=== PATIENT | female | born 1990 | race Caucasian/White ===

== ENCOUNTER 2019-01-19 21:47 | Inpatient (IN) | payer OTHER ==
[~2019-01-19] VITALS: Ht 154.9 cm; Wt 75.0 kg
[2019-01-21] MEDS ORDERED: METOCLOPRAMIDE 5 MG/ML, 2ML IV ONE (10:30)
[2019-01-21] MEDS ORDERED: LACTATED RINGERS 1,000 ML IVBOLUS ONE (10:30)
[2019-01-21] MEDS ORDERED: SODIUM CITRATE/CITRIC ACID 30 ML UDC PO ONE (10:30)
[2019-01-21] MEDS ORDERED: NEWBORN KIT ONE (10:34)
[2019-01-21] MEDS ORDERED: SODIUM CITRATE/CITRIC ACID 30 ML UDC ONE (10:35)
[2019-01-21] MEDS ORDERED: METOCLOPRAMIDE 5 MG/ML, 2ML ONE (10:35)
[2019-01-21] MEDS ORDERED: OXYTOCIN 30U/ 0.9% NaCL 500ML 500 ML ONE (10:35)
[2019-01-21 10:38] VITALS: BP 128/91
[2019-01-21 10:48] LABS: BASOPHILS # (AUTO) 0.02 x10^3/uL (0-0.1); BASOPHILS % (AUTO) 0 % (0-1); EOSINOPHILS # (AUTO) 0.01 x10^3/uL (0-0.4); EOSINOPHILS % (AUTO) 0 % (1-7); LYMPHOCYTES # (AUTO) 2.45 x10^3/uL (1-3.4); LYMPHOCYTES % (AUTO) 23 % (22-44); MD NO; MEAN CORPUSCULAR HEMOGLOBIN 28.5 pg (27.0-34.8); MEAN CORPUSCULAR HGB CONC 32.6 g/dL (32.4-35.8); MEAN CORPUSCULAR VOLUME 87.3 fL (80-100); MEAN PLATELET VOLUME 7.7 fL (7.4-10.4); MONOCYTES # (AUTO) 0.52 x10^3/uL (0.2-0.8); MONOCYTES % (AUTO) 5 % (2-9); NEUTROPHILS % (AUTO) 73 % (42-75); PLATELET COUNT 200 x10^3/uL (130-400); RED BLOOD COUNT 3.59 x10^6/uL (3.82-5.3); RED CELL DISTRIBUTION WIDTH 13.9 % (9.6-15.2)
[2019-01-21] MEDS: LACTATED RINGERS 1,000 ML IV SCH ×2 (11:00→14:09)
[2019-01-21 11:01] LABS: ALANINE AMINOTRANSFERASE 11 U/L (12-78); ALBUMIN 2.3 g/dL (3.4-5.0); ANION GAP 9 mmol/L (5-15); CALCIUM 8.5 mg/dL (8.5-10.1); CHLORIDE 112 mmol/L (98-107); CREATININE 0.76 mg/dL (0.55-1.02)
[2019-01-21 11:03] LABS: ALKALINE PHOSPHATASE 199 U/L (45-117); BILIRUBIN,TOTAL 0.2 mg/dL (0.2-1.0); TOTAL PROTEIN 6.6 g/dL (6.4-8.2)
[2019-01-21] MEDS ORDERED: morphine SULFATE/PF 0.5 MG/ML, 10ML ONE (11:22)
[2019-01-21] MEDS ORDERED: OXYTOCIN 10 UNITS/ML, 1ML ONE (11:23)
[2019-01-21] MEDS ORDERED: WATER-INJECTION,STERILE 10 ML IV ONE (11:23)
[2019-01-21] MEDS ORDERED: ONDANSETRON 2MG/ML, 2ML ONE (11:23)
[2019-01-21] MEDS ORDERED: EPHEDRINE 50 MG/ML, 1ML ONE (11:23)
[2019-01-21] MEDS ORDERED: PHENYLEPHRINE 10 MG/ML ONE (11:23)
[2019-01-21] MEDS ORDERED: CEFAZOLIN 1,000 MG ONE (11:23)
[2019-01-21] MEDS ORDERED: MISOPROSTOL 200 MCG TABLET PR PRN (13:30)
[2019-01-21] MEDS ORDERED: OXYcodone IR 5MG TABLET PO PRN (13:30)
[2019-01-21] MEDS ORDERED: ONDANSETRON 2MG/ML, 2ML IV PRN (13:30)
[2019-01-21] MEDS ORDERED: OXYcodone/APAP 5/325MG TABLET PO PRN (13:30)
[2019-01-21] MEDS ORDERED: ACETAMINOPHEN 325 MG TABLET PO PRN (13:30)
[2019-01-21] MEDS ORDERED: PREN1TAB60 PO (13:47)
[2019-01-21] MEDS ORDERED: METF10007 PO (13:49)
[2019-01-21] MEDS ORDERED: INSU100I40 SC (13:51)
[2019-01-21] MEDS: AMOXICILLIN/CLAV 875-125MG TABLET PO SCH ×2 (14:07→21:23)
[2019-01-21] MEDS: OXYTOCIN 30U/ 0.9% NaCL 500ML 500 ML IV SCH ×2 (14:10→23:03)
[2019-01-21] MEDS ORDERED: KETOROLAC 30 MG/1 ML ONE (15:04)
[2019-01-21] MEDS: KETOROLAC 30 MG/1 ML IV PRN ×2 (15:05→20:57)
[2019-01-21 15:28] VITALS: BP 122/78
[2019-01-21] MEDS: INSULIN REGULAR 100 UNITS/ML, 3ML VIAL SQ-INSULIN SCH (18:00)
[2019-01-21 20:00] VITALS: BP 127/87
[2019-01-21 20:27] LABS: BASOPHILS # (AUTO) 0.06 x10^3/uL (0-0.1); BASOPHILS % (AUTO) 0 % (0-1); EOSINOPHILS # (AUTO) 0.01 x10^3/uL (0-0.4); EOSINOPHILS % (AUTO) 0 % (1-7); LYMPHOCYTES # (AUTO) 2.28 x10^3/uL (1-3.4); LYMPHOCYTES % (AUTO) 17 % (22-44); MD NO; MEAN CORPUSCULAR HEMOGLOBIN 29.5 pg (27.0-34.8); MEAN CORPUSCULAR HGB CONC 33.9 g/dL (32.4-35.8); MEAN PLATELET VOLUME 7.7 fL (7.4-10.4); MONOCYTES # (AUTO) 0.61 x10^3/uL (0.2-0.8); MONOCYTES % (AUTO) 5 % (2-9); NEUTROPHILS # (AUTO) 10.65 x10^3/uL (1.8-6.8); NEUTROPHILS % (AUTO) 78 % (42-75); PLATELET COUNT 199 x10^3/uL (130-400); RED BLOOD COUNT 3.48 x10^6/uL (3.82-5.3); RED CELL DISTRIBUTION WIDTH 13.9 % (9.6-15.2)
[2019-01-22] VITALS: BP 118/77
[2019-01-22] MEDS: GUAIFENESIN/DM 200-20MG, 10ML UDC PO PRN ×3 (00:34→14:17)
[2019-01-22] MEDS: KETOROLAC 30 MG/1 ML IV PRN ×4 (02:57→20:53)
[2019-01-22 04:00] VITALS: BP 125/81
[2019-01-22] MEDS: INSULIN REGULAR 100 UNITS/ML, 3ML VIAL SQ-INSULIN SCH ×4 (06:00→18:00)
[2019-01-22 07:30] VITALS: BP 112/73
[2019-01-22] MEDS: OXYTOCIN 30U/ 0.9% NaCL 500ML 500 ML IV SCH ×2 (09:03→19:03)
[2019-01-22] MEDS: PRENATAL VIT/IRON/FA 1 EACH TABLET PO SCH (09:06)
[2019-01-22] MEDS: DOCUSATE 100 MG CAPSULE PO PRN ×2 (09:06→20:53)
[2019-01-22] MEDS: AMOXICILLIN/CLAV 875-125MG TABLET PO SCH ×2 (09:06→20:53)
[2019-01-22] MEDS ORDERED: LIDOCAINE-MPF 1%, 2ML INFIL ONE (12:00)
[2019-01-22] MEDS ORDERED: LIDOCAINE/PRILOCAINE CRM W/TEG 5GM TP ONE (12:00)
[2019-01-22 13:00] VITALS: BP 118/80
[2019-01-22] MEDS ORDERED: DIPH,PERTUSS(ACELL),TET VAC/PF NC IM-VACC ONE (18:30)
[2019-01-22 20:00] VITALS: BP 122/91
[2019-01-22] MEDS ORDERED: SIMETHICONE 80 MG CHEW TAB ONE (20:50)
[2019-01-23 02:30] VITALS: BP 123/86
[2019-01-23] MEDS: IBUPROFEN 600 MG TABLET PO PRN ×4 (03:02→20:49)
[2019-01-23] MEDS ORDERED: SIMETHICONE 80 MG CHEW TAB ONE (03:04)
[2019-01-23] MEDS: INSULIN REGULAR 100 UNITS/ML, 3ML VIAL SQ-INSULIN SCH ×4 (06:00→18:00)
[2019-01-23 08:00] VITALS: BP 144/90
[2019-01-23] MEDS ORDERED: ONDANSETRON ODT 4 MG ONE (08:25)
[2019-01-23] MEDS: AMOXICILLIN/CLAV 875-125MG TABLET PO SCH ×2 (08:26→20:49)
[2019-01-23] MEDS: DOCUSATE 100 MG CAPSULE PO PRN ×2 (08:27→20:49)
[2019-01-23] MEDS: GUAIFENESIN/DM 200-20MG, 10ML UDC PO PRN ×2 (08:27)
[2019-01-23] MEDS: SIMETHICONE 80 MG CHEW TAB PO PRN ×2 (08:27→20:49)
[2019-01-23] MEDS: PRENATAL VIT/IRON/FA 1 EACH TABLET PO SCH (08:30)
[2019-01-23] MEDS ORDERED: ONDANSETRON ODT 4 MG PO PRN (08:30)
[2019-01-23 19:52] VITALS: BP 125/83
[2019-01-24] MEDS: SIMETHICONE 80 MG CHEW TAB PO PRN (04:17)
[2019-01-24] MEDS: IBUPROFEN 600 MG TABLET PO PRN ×2 (04:17→10:37)
[2019-01-24] MEDS: GUAIFENESIN/DM 200-20MG, 10ML UDC PO PRN (05:18)
[2019-01-24] MEDS: INSULIN REGULAR 100 UNITS/ML, 3ML VIAL SQ-INSULIN SCH (06:00)
[2019-01-24] MEDS ORDERED: OXYC-302 PO (07:43)
[2019-01-24] MEDS ORDERED: IBUP200T49 PO (07:44)
[2019-01-24] MEDS ORDERED: IBUP-1222 PO (07:46)
[2019-01-24] MEDS ORDERED: AMOX1TAB64 PO (07:48)
[2019-01-24] MEDS: DOCUSATE 100 MG CAPSULE PO PRN (09:21)
[2019-01-24] MEDS: AMOXICILLIN/CLAV 875-125MG TABLET PO SCH (09:21)
[2019-01-24 11:00] VITALS: BP 135/91
== END 2019-01-24 11:05 | disposition home or self-care (01) | DRG 788 ==
LOC: LDIP 21:47 → UNDOADMIN 21:47 → LDIP 01-21 09:56 → 2NW 01-21 15:13
PROVIDERS: ADMIT Obstetrics & Gynecology; ATTEND Obstetrics & Gynecology
PROC: 10D00Z1 Extraction of Products of Conception, Low, Open Approach (ICD-10-PCS; principal; 2019-01-21)
DX: O24.424 Gestational diabetes mellitus in childbirth, insulin controlled (principal); O34.211 Maternal care for low transverse scar from previous cesarean delivery; Z83.3 Family history of diabetes mellitus; Z82.3 Family history of stroke; Z80.3 Family history of malignant neoplasm of breast; Z37.0 Single live birth; Z3A.38 38 weeks gestation of pregnancy
CPT/HCPCS: 36415; 80053; 82962; 84550; 85025; 86850; 86900; 90715; G0378; J0690; J1885; J2274; J2405; Q0162; J2370; J2590; J2765; J7120